=== PATIENT | male | born 1950 | race African-American/Black ===

== ENCOUNTER 2017-01-31 08:52 | Inpatient (IN) | payer OTHER, MEDICARE, BC ==
[2017-01-30 13:08] VITALS: BMI 35.3
[2017-01-31] VITALS (21 sets, daily range): BP systolic 128–171; BP diastolic 58–93; PULSE 69–89; RESP 10–20; Ht 195.6 cm; Wt 128.6 kg
[~2017-01-31] VITALS: Ht 195.6 cm; Wt 128.6 kg
[~2017-01-31 08:52] MED LIST: LISINOPRIL
[2017-01-31] MEDS ORDERED: LACTATED RINGER'S 1,000 ML IV* SCH (09:00)
[2017-01-31] MEDS ORDERED: CEFAZOLIN 2 GM/50 ML (PMX) 50 ML IVPB ONE (09:00)
[2017-01-31] MEDS ORDERED: IBUP100O10 PO (09:39)
[2017-01-31] MEDS ORDERED: TAMS0.4C2 PO (09:39)
[2017-01-31] MEDS ORDERED: ASPI81TA3 PO (09:39)
[2017-01-31] MEDS ORDERED: RANI300T PO (09:39)
[2017-01-31] MEDS ORDERED: LOSA1TAB19 PO (09:39)
[2017-01-31] MEDS ORDERED: SITA100T8 PO (09:39)
[2017-01-31] MEDS ORDERED: GLIM2TAB PO (09:39)
[2017-01-31] MEDS ORDERED: D5W-0.45 NACL + KCL 20 MEQ 1,000 ML IV SCH (10:32)
--- NOTE | 2017-01-31 10:35 | HPN ---
Date/Time of Note Date/Time of Note DATE: 01/31/17 TIME: 10:34 Interval H&P Admission Note Pt. seen H&P reviewed: No system changes NEWTON FRIEDMAN PA-C Jan 31, 2017 10:35
[2017-01-31] MEDS ORDERED: SURGIFOAM POWDER 1 GM KIT ONE (10:42)
[2017-01-31] MEDS ORDERED: POLYMYXIN/BACITRACIN 1L IRRIG ONE (10:43)
[2017-01-31] MEDS ORDERED: THROMBIN 5000 UNIT VIAL ONE (10:43)
[2017-01-31] MEDS ORDERED: BUPIVACAINE 0.25%/EPI (SDV) 30 ML INJ ONE (10:43)
[2017-01-31] MEDS ORDERED: BISACODYL 10 MG SUPP PR PRN (11:00)
[2017-01-31] MEDS ORDERED: AL HYDROX/MG HYDROX/SIMETH 30 ML CUP PO PRN (11:00)
[2017-01-31] MEDS ORDERED: CYCLOBENZAPRINE 10 MG TAB PO PRN (11:00)
[2017-01-31] MEDS ORDERED: CEPASTAT LOZENGE MT PRN (11:00)
[2017-01-31] MEDS ORDERED: HYDROmorphONE 0.2 MG/ML PCA IV SCH ×2 (11:00→15:00)
[2017-01-31] MEDS ORDERED: DIPHENHYDRAMINE 50 MG INJ IV PRN ×2 (11:00→12:00)
[2017-01-31] MEDS ORDERED: NALOXONE (0.4 MG/ML) INJ IV PRN (11:00)
[2017-01-31] MEDS ORDERED: ACETAMINOPHEN 325 MG TAB PO PRN (11:00)
[2017-01-31] MEDS ORDERED: ONDANSETRON 4 MG INJ IV PRN ×2 (11:00→12:00)
[2017-01-31] MEDS ORDERED: ONDANSETRON 4 MG INJ ONE (11:04)
[2017-01-31] MEDS ORDERED: HYDROmorphONE 2 MG/ML SYG ONE (11:04)
[2017-01-31] MEDS ORDERED: MIDAZOLAM 1 MG/ML 2 ML INJ ONE (11:04)
[2017-01-31] MEDS ORDERED: DEXAMETHASONE 4 MG/ML 1 ML INJ ONE (11:04)
[2017-01-31] MEDS ORDERED: ROCURONIUM 50 MG INJ ONE ×2 (11:04→11:26)
[2017-01-31] MEDS ORDERED: METOCLOPRAMIDE 10 MG INJ ONE (11:04)
[2017-01-31] MEDS ORDERED: PROPOFOL 20 ML ONE ×3 (11:04→13:51)
[2017-01-31] MEDS ORDERED: CEFAZOLIN 1 GM INJ ONE (11:09)
[2017-01-31] MEDS ORDERED: METOPROLOL 5 MG INJ ONE (11:30)
[2017-01-31] MEDS ORDERED: MEPERIDINE 25 MG INJ IV PRN (12:00)
[2017-01-31] MEDS ORDERED: LABETALOL HCL 20MG INJ IV PRN (12:00)
[2017-01-31] MEDS ORDERED: hydrALAzine 20 MG INJ IV PRN (12:00)
[2017-01-31] MEDS ORDERED: METOCLOPRAMIDE 10 MG INJ IV PRN (12:00)
[2017-01-31] MEDS ORDERED: HYDROmorphONE (0.2 MG/ML) 10ML SYG IV PRN ×3 (12:00)
[2017-01-31] MEDS ORDERED: CEFAZOLIN 1 GM/50 ML (PMX) 50 ML IVPB SCH (13:00)
[2017-01-31] MEDS ORDERED: SUCCINYLCHOLINE CHLORIDE 100 MG/5 ML SYG IV ONE (13:16)
[2017-01-31] MEDS ORDERED: LABETALOL HCL 20MG INJ ONE (14:08)
[2017-01-31] MEDS ORDERED: GLYCOPYRROLATE 1 MG INJ ONE (14:14)
[2017-01-31] MEDS ORDERED: NEOSTIGMINE 3 MG/3 ML SYRINGE ONE (14:14)
[2017-01-31] MEDS ORDERED: HYDROmorphONE 0.2 MG/ML PCA ONE (14:50)
--- NOTE | 2017-01-31 15:02 | OPR ---
DATE OF OPERATION: 01/31/2017 PREOPERATIVE DIAGNOSES: 1. C5-C6, C6-C7 cervical disk disease and stenosis with partial autofusion. 2. Radiculopathy. POSTOPERATIVE DIAGNOSES: 1. C5-C6, C6-C7 cervical disk disease and stenosis with partial autofusion. 2. Radiculopathy. OPERATIONS PERFORMED: 1. Anterior partial corpectomy at C5, C6, C7. 2. Anterior cervical fusion at C5-C6 and C6-C7. 3. Anterior hardware placement at C5, C6, C7. 4. Intraoperative neuromonitoring (2.5 hours). IMPLANTS: NeuroStructures Transom plate and Cavetto cages with Fibergraft. PRIMARY SURGEON: Carmelo Banks MD CAGE/VAULT SUPERVISOR: SURYA Whiteside NEED FOR SOFTWARE ENGINEER WEB APPLICATIONS: During this spinal surgical procedure, my litigation assistant was used to retract and protect the spinal nerves and dural sac. My litigation assistant also employed the suction catheters to evacuate blood from the surgical field to improve visualization of the neural structures. The litigation assistant was medically necessary to facilitate the completion of the surgery in a safe and expeditious manner. State of [place] regulations, as well as hospital bylaws, preclude the use of non-licensed health care personnel, such as operating room technicians, to perform these functions. FINDINGS: Neuromonitoring at the start of the case revealed left C6 amplitude down 50%, right C6 amplitude down 60%, bilateral C7 amplitude down 50%, bilateral C8 amplitude down 10%. At the end of the case, nerve signals returned to normal. The patient had partial autofusions at both C5-C6 and C6- C7 with stenosis and posterior osteophytes. ESTIMATED BLOOD LOSS: 60 mL DRAINS: One. SPECIMENS: Disk was sent to Pathology. COMPLICATIONS OF PROCEDURES: None. ANESTHESIOLOGIST: Dr. Epps TYPE OF ANESTHESIA: General. INDICATIONS FOR PROCEDURE: This is a 66-year-old gentleman cervical radiculopathy in the setting of stenosis. He has autofusion at C4-C5 with stenosis at C5-C6 and C6-C7. DESCRIPTION OF PROCEDURE IN DETAIL: The patient was identified in the preoperative holding area, given Ancef antibiotic, taken to the operating room, where he was successfully placed under general anesthesia. Neuromonitoring leads were placed, sequential compressive devices were applied. Neuromonitoring was utilized during the procedure for 2.5 hours to include SSEP , MEP, and EMG. This was performed by [employer]. Start time was 11:45 a.m., closure time was 2:15 p.m. Patient was placed on the operative table in supine position. Towel rolls were placed behind the neck and between the scapular blades and the arms were tucked at the side. The patient had essentially 0 neck extension. His neck was prepped and draped in usual sterile fashion. A left-sided approach to the neck was made. Skin was incised. I then incised the platysma in line with the skin incision. I then identified an interval between the sternocleidomastoid and strap muscles and identified the anterior spine. Bent spinal needle was placed in the C5-C6 level and lateral films obtained to confirm the correct levels. Once this was confirmed, I subperiosteally dissected the longus colli musculature to expose C5-C6 and C6- C7 levels. The patient had an autofusion at C4-C5. Attempts were made at performing a standard anterior cervical diskectomy at both levels; however, the patient had a partial autofusion and this could not be done. I therefore had to perform partial corpectomies of C5, C6 and C7 with removal of at least 50% of the vertebral bodies at each level. I was able to bur down to the posterior osteophytes which were causing stenosis and I was able to remove these with a Kerrison punch. I was therefore able to decompress the spinal canal at C5-C6, C6-C7 and the neural foramina bilaterally. Once this was done, I placed various trials and chose the appropriate graft height. I then took the PEEK cage, within which I placed allograft and I then impacted the intervertebral biomechanical device into the disk spaces at C5-C6 and C6-C7 to complete the anterior cervical fusion at both levels. I then placed the appropriate sized cervical plate and used 16 mm screws. I had excellent purchase. I took AP and lateral images and I was happy with placement of the hardware and alignment of the spine. All signals were normal. The wound was irrigated. Surgifoam was used for hemostatic purposes. Due to the patient's muscular neck , I elected to place a drain. Afterwards, I closed the platysma with a 2-0 Vicryl running stitch. I then closed subcutaneous tissue with a 3-0 Vicryl stitch. Dermabond and sterile dressings were then applied. The patient was then awakened from anesthesia and taken to recovery room in stable condition. Lap, sponge, and instrument counts were correct x2. There were no apparent complications during the procedure. The patient will be admitted to the [facility] for routine postoperative care to include pain control, neurovascular checks, antibiotics, and physical therapy. Dictated By: CARMELO MONTAGUE/AKOSUA Conf#: [id number] DID#: [id number] CC: NEWTON FRIEDMAN;*EndCC* MTDD
--- NOTE | 2017-01-31 15:15 | RADRPT ---
PROCEDURE: Intraoperative imaging of the cervical spine with fluoroscopy. CLINICAL INDICATION: Neck pain. Intraoperative. TECHNIQUE: Four images of the cervical spine were obtained in the operating room with an image int ensifier. No radiologist was in attendance. 17.3 seconds of fluoroscopy time was used. COMPARISON: No prior study is available for comparison. FINDINGS: Images demonstrate anterior fusion with plate and screws at C5 - C6 - C7. The endotracheal tube is noted. IMPRESSION: 1. Intraoperative imaging of the cervical spine. 2. Anterior fusion with plate and screws at C5 - C6 - C7. RPTAT: QQ .Artur Vital MD, MD Date Time Electronically viewed and signed by .Artur Vital MD, on 01/31/2017 15:14 .R/
[2017-01-31] MEDS: 1/2 NS + KCL 20 MEQ 1,000 ML IV SCH (18:28)
[2017-01-31] MEDS: DOCUSATE SODIUM 100 MG CAP PO SCH ×2 (20:02→20:16)
[2017-01-31] MEDS: RANITIDINE 150 MG TAB PO SCH (20:16)
[2017-01-31] MEDS: TAMSULOSIN (SR) 0.4 MG CAP PO SCH (20:16)
--- NOTE | 2017-01-31 20:42 | CONS ---
DATE OF ADMISSION: 01/31/2017 DATE OF CONSULTATION: REASON FOR CONSULTATION: To manage the patient's hypertension, benign prostatic hypertrophy, gastro esophageal reflux disease and obstructive sleep apnea. HISTORY OF PRESENT ILLNESS: This 66-year-old man is now postop a cervical spine surgery by Dr. Loi gates. The patient apparently was having neck pain with bilateral upper extremity numbness. The pa heidi failed medical therapy and decided to undergo surgery. He had a cervical spine surgery today which included a cervical spine fusion at the C5-C6 and C6-C7 levels. The patient had a cervical sp ine stenosis with radiculopathy diagnosed preoperatively. The patient is awake and responsive at th is time. He denies any chest pain or shortness of breath. PAST MEDICAL HISTORY: Remarkable for hypertension, benign prostatic hypertrophy, gastroesophageal r eflux disease, obstructive sleep apnea. SOCIAL HISTORY: The patient rarely drinks alcohol and never smoked. Denies illicit drug use. FAMILY HISTORY: His father at age 87 of congestive heart failure. ALLERGIES: HE HAS NO KNOWN DRUG ALLERGIES. CURRENT MEDICATIONS: Include the followin. Cialis p.r.n. 2. Flomax 0.4 mg at bedtime. 3. Glimepiride 2 mg at breakfast. 4. Januvia 100 mg a day. 5. Losartan HCT 50 mg/12.5 a day. 6. Metformin 2 tablets in the morning and 1 tablet in the evening. 7. Ranitidine 300 mg at bedtime. PAST SURGICAL HISTORY: Previous lumbar spine surgery including instrumented fusion, total knee repl acement done in 1999 and left total knee replacement done previously here at [facility] by Dr. Ray Hernandez. PHYSICAL EXAMINATION: GENERAL: At this time reveals an obese man in no apparent distress. VITAL SIGNS: Blood pressure 140/69, O2 saturation 96% on 2 liter nasal cannula, pulse of 83. HEENT: Head normocephalic. EYES: Extraocular muscles intact. NOSE AND MOUTH: Normal. NECK: There is a fresh wound with a drain over the left anterior neck. LUNGS: Clear to auscultation. HEART: Regular rhythm. No murmurs, gallops or rubs. ABDOMEN: Slightly obese. EXTREMITIES: No peripheral edema. IMPRESSION: This patient is now stable after undergoing a cervical spine surgery with fusion for sp inal stenosis. He is awake and alert. The patient has a history of hypertension, benign prostatic hypertrophy, gastroesophageal reflux disease and obstructive sleep apnea. I will manage these medic al problems. PLAN: 1. Resume some routine medications. 2. Check labs in the morning. 3. Postop cervical spine surgery protocol. 4. I will follow the patient along with you. Dictated By: ZABRINA UMANZOR MD, ND/AKOSUA Conf#: [id number] DID#: [id number]
[2017-02-01] MEDS: 1/2 NS + KCL 20 MEQ 1,000 ML IV SCH ×3 (00:32→17:32)
[2017-02-01] MEDS: CEFAZOLIN 1 GM/50 ML (PMX) 50 ML IVPB SCH ×3 (00:32→17:32)
[2017-02-01 05:11] VITALS: BP 142/75; PULSE 70; RESP 18
[2017-02-01 05:23] LABS: ADD SCAN DIFF NO
[2017-02-01 05:58] LABS: CREATININE 0.81 mg/dl (0.61-1.24)
[2017-02-01 05:59] LABS: CALCIUM 8.4 mg/dl (8.4-10.2); MAGNESIUM 2.1 mg/dl (1.7-2.5)
[2017-02-01 07:03] LABS: BASOPHILS % 0.2 % (0.0-2.0); EOSINOPHILS % 0.1 % (0.0-7.0); HEMATOCRIT 40.7 % (42.0-52.0); HEMOGLOBIN 12.9 g/dl (14.0-18.0); LYMPHOCYTES # 1.4 10^3/ul (0.8-2.9); MEAN CORPUSCULAR HEMOGLOBIN 26.2 pg (29.0-33.0); MEAN CORPUSCULAR HGB CONC 31.7 g/dl (32.0-37.0); MEAN CORPUSCULAR VOLUME 82.6 fl (82.0-101.0); MEAN PLATELET VOLUME 11.2 fl (7.4-10.4); MONOCYTE # 0.9 10^3/ul (0.3-0.9); MONOCYTES % 8.4 % (0.0-11.0); NEUTROPHIL # 8.1 10^3/ul (1.6-7.5); NEUTROPHILS % 77.7 % (39.0-77.0); PLATELET COUNT 164 10^3/UL (140-415); RED BLOOD COUNT 4.93 10^6/ul (4.70-6.10); RED CELL DISTRIBUTION WIDTH 15.7 % (11.5-14.5); WHITE BLOOD COUNT 10.4 10^3/ul (4.8-10.8)
[2017-02-01 07:49] VITALS: BP 136/61; RESP 16
--- NOTE | 2017-02-01 08:33 | CONS ---
Date/Time of Note Date/Time of Note DATE: 02/01/17 TIME: 08:31 Assessment/Plan Assessment/Plan Chief Complaint/Hosp Course #1 he is one day postop A cervical spine surgery. He has no complaints other than some neck pain. #2 is diabetes mellitus and hypertension are under control. #3 continue current medication and start physical therapy. Problems: Consultation Date/Type/Reason Admit Date/Time Jan 31, 2017 at 08:52 Initial Consult Date 24 HR Interval Summary Free Text/Dictation He now one day postop a cervical spine surgery. He is awake and alert. Constitutional: no complaints Exam/Review of Systems Vital Signs Vitals Vital Signs Date Time Temp Pulse Resp B/P Pulse Ox O2 Delivery O2 Flow Rate FiO2 02/01/17 07:49 97.9 80 16 136/61 98 02/01/17 05:11 Nasal Cannula 2.0 Intake and Output 01/31/17 01/31/17 02/01/17 15:00 23:00 07:00 Intake Total 100 ml 1700 ml Output Total 20 ml 5 ml 1120 ml Balance -20 ml 95 ml 580 ml Exam Constitutional: alert, oriented, well developed Respiratory: clear to auscultation, normal air movement Cardiovascular: regular rate and rhythm Gastrointestinal: soft Musculoskeletal: nl extremities to inspection Results Result Diagram: 02/01/17 0422 02/01/17 0422 Results 24 hrs Laboratory Tests Test 01/31/17 09:30 01/31/17 15:23 02/01/17 04:22 02/01/17 08:26 Bedside Glucose 128 166 122 Anion Gap 16 Basophils # 0.0 Basophils % 0.2 Blood Urea Nitrogen 15 Calcium Level 8.4 Carbon Dioxide Level 25 Chloride Level 102 Creatinine 0.81 Eosinophils # 0.0 Eosinophils % 0.1 Glucose Level 113 Hematocrit 40.7 L Hemoglobin 12.9 L Lymphocytes # 1.4 Lymphocytes % 13.0 L Magnesium Level 2.1 Mean Corpuscular Hemoglobin 26.2 L Mean Corpuscular Hemoglobin Concent 31.7 L Mean Corpuscular Volume 82.6 Mean Platelet Volume 11.2 H Monocytes # 0.9 Monocytes % 8.4 Neutrophils # 8.1 H Neutrophils % 77.7 H Nucleated Red Blood Cells # 0.0 Nucleated Red Blood Cells % 0.0 Platelet Count 164 Potassium Level 4.0 Red Blood Count 4.93 Red Cell Distribution Width 15.7 H Sodium Level 139 White Blood Count 10.4 Medications Medications Current Medications Acetaminophen/ Hydrocodone Bitart ([place] (10325)) 1 tab Q4H PRN PO PAIN LEVEL 1-5; Start 02/01/17 at 09:30 Acetaminophen/ Hydrocodone Bitart ([place] (10/325)) 2 tab Q4H PRN PO PAIN LEVEL 6-10; Start 02/01/17 at 09:30 Hydromorphone HCl (Dilaudid) 0.2 mg Q1H PRN IV BREAKTHROUGH PAIN; Start at 10:00 Ondansetron HCl (Zofran Inj) 4 mg Q6H PRN IV NAUSEA AND/OR VOMITING Last administered on 02/01/17 04:43; Admin Dose 4 MG; Start 01/31/17 at 11:00 Bisacodyl (Dulcolax Supp) 10 mg DAILY PRN [place] CONSTIPATION; Start 01/31/17 at 11 :00 Docusate Sodium (Colace) 100 mg BID PO Last administered on 01/31/17 20:16; Admin Dose 100 MG; Start 01/31/17 at 21:00 Al Hydrox/Mg Hydrox/Simethicone (Mag-Al Plus) 15 ml Q6H PRN PO CONSTIPATION/ DYSPEPSIA; Start 01/31/17 at 11:00 Acetaminophen (Tylenol Tab) 650 mg Q4H PRN PO GRAHAM OR TEMP GREATER THAN 101.3F; Start 01/31/17 at 11:00 Cyclobenzaprine HCl (Flexeril) 10 mg Q8H PRN PO MUSCLE SPASMS; Start 01/31/17 at 11:00 Phenol (Cepastat Lozenge) 1 lozenge PRN PRN MT SORE THROAT; Start 01/31/17 at 11:00 Diphenhydramine HCl (Benadryl) 25 mg Q6H PRN IV ITCHING Last administered on 04:46; Admin Dose 25 MG; Start 01/31/17 at 11:00 Naloxone HCl (Narcan) 0.2 mg Q2M PRN IV RR 8 BREATHS/MIN OR LESS; Start at 11:00 Miscellaneous Information 1. Hold ELEVATOR MECHANIC at 1,000... ELEVATOR MECHANIC IV ; Start 01/31/17 at 11: 00 Potassium Chloride/Sodium Chloride (1/2 NS + KCl 20 Meq) 1,000 ml @ 100 mls/hr Q10H IV Last administered on 02/01/17 00:32; Admin Dose 100 MLS/HR; Start at 14:40 Hydromorphone HCl (Dilaudid ELEVATOR MECHANIC) ELEVATOR MECHANIC to be started in PACU Q4PCA IV Last administered on 01/31/17 15:03; Admin Dose 6 MG; Start 01/31/17 at 15:00; Stop 02/01/17 at 10:00 Ranitidine HCl (Zantac) 300 mg HS PO Last administered on 01/31/17 20:16; Admin Dose 300 MG; Start 01/31/17 at 21:00 Tamsulosin HCl 0.4 mg 0.4 mg HS PO Last administered on 01/31/17 20:16; Admin Dose 0.4 MG; Start 01/31/17 at 21:00 Cefazolin Sodium (Ancef 1 Gm/50 ml (Pmx)) 50 ml @ 100 mls/hr Q8H IVPB Last administered on 02/01/17 00:32; Admin Dose 100 MLS/HR; Start 02/01/17 at 01:30 ; Stop 02/01/17 at 17:59 Clonidine (Catapres) 0.1 mg Q6H PRN PO SBP>160; Start 02/01/17 at 05:30 Diagnostic Test (Pha) (Accucheck) 1 ea 02 XX ; Start 02/02/17 at 02:00; Status ZABRINA SHEFFIELD MD Feb 01, 2017 08:33
[2017-02-01] MEDS ORDERED: GLUCOSE GEL 15 GRAM TUBE PO PRN ×2 (09:00)
[2017-02-01] MEDS ORDERED: DEXTROSE 50% 50 ML SYRINGE IV PRN ×2 (09:00)
[2017-02-01] MEDS ORDERED: GLUCOSE GEL 15 GRAM TUBE BUCCAL PRN (09:00)
[2017-02-01] MEDS ORDERED: GLUCAGON 1 MG INJ IM PRN (09:00)
[2017-02-01] MEDS ORDERED: HYDROCODONE/APAP (10/325) TAB PO PRN (09:30)
[2017-02-01] MEDS: LOSARTAN 50 MG TAB PO SCH (09:38)
[2017-02-01] MEDS: HYDROCODONE/APAP (10/325) TAB PO PRN ×2 (09:39→20:29)
[2017-02-01] MEDS: INSULIN ASPART [NOVOLOG] 3 ML PEN SC SCH ×3 (11:40→20:30)
--- NOTE | 2017-02-01 12:50 | PN ---
Date/Time of Note Date/Time of Note DATE: 02/01/17 TIME: 12:48 Assessment/Plan Lines/Catheters IV Catheter Type (from Nrsg): Peripheral IV Assessment/Plan Assessment/Plan s/p ACDF C5-7 - doing well continue pain control, PT today anticipate D/C tomorrow AM Subjective 24 Hr Interval Summary patient c/o sore throat, dysphagia arm pain improved continues to note numbness Exam/Review of Systems Vital Signs Vitals Vital Signs Date Time Temp Pulse Resp B/P Pulse Ox O2 Delivery O2 Flow Rate FiO2 02/01/17 10:00 18 02/01/17 07:49 97.9 80 136/61 98 02/01/17 05:11 Nasal Cannula 2.0 Intake and Output 01/31/17 01/31/17 02/01/17 15:00 23:00 07:00 Intake Total 100 ml 1700 ml Output Total 20 ml 5 ml 1120 ml Balance -20 ml 95 ml 580 ml Exam Free Text/Dictation NVID drain output 45cc - drain D/C'ed incision C/D/I new dressing applied Results Result Diagram: 02/01/17 0422 02/01/17 0422 NEWTON FRIEDMAN PA-C Feb 01, 2017 12:49
[2017-02-01 19:50] VITALS: BP 138/83; RESP 18
[2017-02-01] MEDS: TAMSULOSIN (SR) 0.4 MG CAP PO SCH (20:29)
[2017-02-01] MEDS: RANITIDINE 150 MG TAB PO SCH (20:29)
[2017-02-01] MEDS: DOCUSATE SODIUM 100 MG CAP PO SCH (20:29)
[2017-02-01] MEDS: ZOLPIDEM 5 MG TAB PO PRN (22:19)
[2017-02-02] MEDS: ACCU-CHEK XX SCH (02:00)
[2017-02-02] MEDS: 1/2 NS + KCL 20 MEQ 1,000 ML IV SCH ×2 (05:07→16:40)
[2017-02-02] MEDS: INSULIN ASPART [NOVOLOG] 3 ML PEN SC SCH ×4 (07:50→21:00)
--- NOTE | 2017-02-02 08:21 | PN ---
Date/Time of Note Date/Time of Note DATE: 02/02/17 TIME: 08:18 Assessment/Plan Lines/Catheters IV Catheter Type (from Nrsg): Saline Lock Assessment/Plan Assessment/Plan s/p ACDF - doing well stable for D/C from ortho perspective D/C IV, D/C home if cleared by PMD f/u arranged post op rx given may resume outpt meds may shower - do not soak or scrub incision site do not need to cover incision Subjective 24 Hr Interval Summary patient c/o left trapezial spasm arm pain improving sore throat improving Exam/Review of Systems Vital Signs Vitals Vital Signs Date Time Temp Pulse Resp B/P Pulse Ox O2 Delivery O2 Flow Rate FiO2 02/01/17 19:50 99.3 74 18 138/83 92 02/01/17 05:11 Nasal Cannula 2.0 Intake and Output 02/01/17 02/01/17 02/02/17 15:00 23:00 07:00 Intake Total 1900 ml 1580 ml Output Total 840 ml 1840 ml Balance 1060 ml -260 ml Exam Free Text/Dictation dressing removed incision C/D/I NVID Temp 97.8, BP 155/74, HR 77, RR 18, SaO2 92 Results Result Diagram: 02/01/17 0422 02/01/17 0422 NEWTON FRIEDMAN PA-C Feb 02, 2017 08:21
[2017-02-02 08:42] VITALS: BP 155/74; RESP 18
[2017-02-02] MEDS: DOCUSATE SODIUM 100 MG CAP PO SCH ×2 (09:04→20:55)
[2017-02-02] MEDS: LOSARTAN 50 MG TAB PO SCH (09:05)
--- NOTE | 2017-02-02 09:36 | CONS ---
Date/Time of Note Date/Time of Note DATE: 02/02/17 TIME: 09:32 Assessment/Plan Assessment/Plan Chief Complaint/Hosp Course #1 he is two days postop a cervical spine surgery. He has pain and swelling in L suprascapular area . I will order an ultrasound of that area . #2 diabetes mellitus and hypertension are under control. #3 continue current medication and start physical therapy. Problems: Consultation Date/Type/Reason Admit Date/Time Jan 31, 2017 at 08:52 Type of Consultation: medicine 24 HR Interval Summary Free Text/Dictation Patient complains of L suprascapular swelling and pain . Exam/Review of Systems Vital Signs Vitals Vital Signs Date Time Temp Pulse Resp B/P Pulse Ox O2 Delivery O2 Flow Rate FiO2 02/02/17 08:42 97.8 77 18 155/74 92 02/01/17 05:11 Nasal Cannula 2.0 Intake and Output 02/01/17 02/01/17 02/02/17 15:00 23:00 07:00 Intake Total 1950 ml 1580 ml Output Total 840 ml 1840 ml Balance 1110 ml -260 ml Exam Constitutional: alert, oriented, well developed Psych: nl mood/affect, no complaints Respiratory: clear to auscultation Cardiovascular: regular rate and rhythm Musculoskeletal: nl extremities to inspection Results Result Diagram: 02/01/17 0422 02/01/17 0422 Results 24 hrs Laboratory Tests Test 02/01/17 12:11 02/01/17 17:31 02/01/17 20:13 02/02/17 08:10 Bedside Glucose 111 133 111 116 Medications Medications Current Medications Acetaminophen/ Hydrocodone Bitart ([place] (10/325)) 1 tab Q4H PRN PO PAIN LEVEL 1-5 Last administered on 02/01/17 20:29; Admin Dose 1 TAB; Start 02/01/17 at 09 :30 Acetaminophen/ Hydrocodone Bitart ([place] (10/325)) 2 tab Q4H PRN PO PAIN LEVEL 6-10; Start 02/01/17 at 09:30 Hydromorphone HCl (Dilaudid) 0.2 mg Q1H PRN IV BREAKTHROUGH PAIN; Start at 10:00 Ondansetron HCl (Zofran Inj) 4 mg Q6H PRN IV NAUSEA AND/OR VOMITING Last administered on 02/01/17 04:43; Admin Dose 4 MG; Start 01/31/17 at 11:00 Bisacodyl (Dulcolax Supp) 10 mg DAILY PRN [place] CONSTIPATION; Start 01/31/17 at 11 :00 Docusate Sodium (Colace) 100 mg BID PO Last administered on 02/02/17 09:04; Admin Dose 100 MG; Start 01/31/17 at 21:00 Al Hydrox/Mg Hydrox/Simethicone (Mag-Al Plus) 15 ml Q6H PRN PO CONSTIPATION/ DYSPEPSIA; Start 01/31/17 at 11:00 Acetaminophen (Tylenol Tab) 650 mg Q4H PRN PO GRAHAM OR TEMP GREATER THAN 101.3F Last administered on 02/01/17 13:55; Admin Dose 650 MG; Start 01/31/17 at 11:00 Cyclobenzaprine HCl (Flexeril) 10 mg Q8H PRN PO MUSCLE SPASMS Last administered on 02/02/17 05:13; Admin Dose 10 MG; Start 01/31/17 at 11:00 Phenol (Cepastat Lozenge) 1 lozenge PRN PRN MT SORE THROAT; Start 01/31/17 at 11:00 Diphenhydramine HCl (Benadryl) 25 mg Q6H PRN IV ITCHING Last administered on 04:46; Admin Dose 25 MG; Start 01/31/17 at 11:00 Naloxone HCl 0.2 mg 0.2 mg Q2M PRN IV RR 8 BREATHS/MIN OR LESS; Start 01/31/17 at 11:00 Potassium Chloride/Sodium Chloride (1/2 NS + KCl 20 Meq) 1,000 ml @ 100 mls/hr Q10H IV Last administered on 02/02/17 05:07; Admin Dose 100 MLS/HR; Start at 14:40 Ranitidine HCl (Zantac) 300 mg HS PO Last administered on 02/01/17 20:29; Admin Dose 300 MG; Start 01/31/17 at 21:00 Tamsulosin HCl (Flomax) 0.4 mg HS PO Last administered on 02/01/17 20:29; Admin Dose 0.4 MG; Start 01/31/17 at 21:00 Clonidine (Catapres) 0.1 mg Q6H PRN PO SBP>160; Start 02/01/17 at 05:30 Diagnostic Test (Pha) (Accucheck) 1 ea 02 XX ; Start 02/02/17 at 02:00 Losartan Potassium (Cozaar) 50 mg DAILY PO Last administered on 02/02/17t 09:05 ; Admin Dose 50 MG; Start 02/01/17 at 09:00 Miscellaneous Information 1 ea NOTE XX ; Start 02/01/17 at 09:00 Glucose (Glutose) 15 gm Q15M PRN PO DECREASED GLUCOSE; Start 02/01/17 at 09:00 Glucose (Glutose) 22.5 gm Q15M PRN PO DECREASED GLUCOSE; Start 02/01/17 at 09: 00 Dextrose (D50w Syringe) 25 ml Q15M PRN IV DECREASED GLUCOSE; Start 02/01/17 at 09:00 Dextrose (D50w Syringe) 50 ml Q15M PRN IV DECREASED GLUCOSE; Start 02/01/17 at 09:00 Glucagon (Glucagen) 1 mg Q15M PRN IM DECREASED GLUCOSE; Start 02/01/17 at 09:00 Glucose (Glutose) 15 gm Q15M PRN BUCCAL DECREASED GLUCOSE; Start 02/01/17 at 09 :00 ZABRINA UMANZOR MD Feb 02, 2017 09:35
[2017-02-02] MEDS: HYDROmorphONE 1 MG/ML SYG IV PRN ×2 (09:55→18:14)
--- NOTE | 2017-02-02 12:20 | RADRPT ---
PROCEDURE: Nonvascular ultrasound. CLINICAL INDICATION: Left suprascapular soft tissue swelling in the region of the trapezius muscle . TECHNIQUE: Real time wong-scale ultrasound imaging of the area of palpable abnormality. The right trapezius muscles evaluated for comparison. COMPARISON: None. FINDINGS: Asymmetric enlargement of the right suprascapular region overlying the right trapezius muscle (this may represent levator scapulae or supraspinatus muscle depending on the exact location) suspicious f or intramuscular lipoma measuring 7 x 3 x 5 cm in size. The right suprascapular region was obtained for comparison. IMPRESSION: Findings suggestive of intramuscular mass or swelling in the region of palpable abnormality. Althoug h this may represent an intramuscular lipoma, infiltrate mass cannot be excluded. Contrast enhanced MRI or CT is recommended for further evaluation. RPTAT:AAJJ Physician Deandra Date Time Electronically viewed and signed by Physician Deandra on 02/02/2017 12:20 ROYAL/
[2017-02-02] MEDS: CLOTRIMAZOLE 10 MG TROCHE MT SCH ×2 (18:14→20:55)
[2017-02-02 20:12] VITALS: BP 157/90; RESP 20
[2017-02-02] MEDS: TAMSULOSIN (SR) 0.4 MG CAP PO SCH (20:55)
[2017-02-02] MEDS: RANITIDINE 150 MG TAB PO SCH (20:55)
[2017-02-02] MEDS: ZOLPIDEM 5 MG TAB PO PRN (21:33)
[2017-02-03] MEDS: 1/2 NS + KCL 20 MEQ 1,000 ML IV SCH ×4 (00:45→22:29)
[2017-02-03] MEDS: ACCU-CHEK XX SCH (02:00)
[2017-02-03 07:44] VITALS: BP 152/94; RESP 20
[2017-02-03] MEDS: INSULIN ASPART [NOVOLOG] 3 ML PEN SC SCH ×4 (07:50→21:00)
[2017-02-03] MEDS: DOCUSATE SODIUM 100 MG CAP PO SCH ×2 (08:57→21:00)
[2017-02-03] MEDS: CLOTRIMAZOLE 10 MG TROCHE MT SCH ×2 (08:57→12:00)
[2017-02-03] MEDS: LOSARTAN 50 MG TAB PO SCH (08:57)
--- NOTE | 2017-02-03 10:21 | CONS ---
Date/Time of Note Date/Time of Note DATE: 02/03/17 TIME: 10:14 Assessment/Plan Assessment/Plan Chief Complaint/Hosp Course #1 he is three days postop a cervical spine surgery. He has pain and swelling in L suprascapular area . An ultrasound was done and it looks like a lipoma . #2 diabetes mellitus and hypertension are under control. #3 continue current medication and start physical therapy. #4 he is having dysphagia and even has difficulty with his own oral secretions . He has been seen by speech therapy and a video swallowing study is ordered . Problems: Consultation Date/Type/Reason Admit Date/Time Jan 31, 2017 at 08:52 Type of Consultation: medicine 24 HR Interval Summary Free Text/Dictation He is having trouble swallowing . Exam/Review of Systems Vital Signs Vitals Vital Signs Date Time Temp Pulse Resp B/P Pulse Ox O2 Delivery O2 Flow Rate FiO2 02/03/17 07:44 98.7 76 20 152/94 96 02/02/17 20:00 Nasal Cannula 2.0 Intake and Output 02/02/17 02/02/17 02/03/17 15:00 23:00 07:00 Intake Total 120 ml 760 ml 1100 ml Output Total 1200 ml 600 ml Balance 120 ml -440 ml 500 ml Exam Constitutional: alert, oriented, well developed Respiratory: clear to auscultation, normal air movement Cardiovascular: regular rate and rhythm Gastrointestinal: soft Musculoskeletal: nl extremities to inspection Results Result Diagram: 02/01/17 0422 02/01/17 0422 Results 24 hrs Laboratory Tests Test 02/02/17 11:48 02/02/17 17:18 02/02/17 20:52 02/03/17 08:01 Bedside Glucose 98 112 105 111 Medications Medications Current Medications Acetaminophen/ Hydrocodone Bitart ([place] (10/325)) 1 tab Q4H PRN PO PAIN LEVEL 1-5 Last administered on 02/01/17 20:29; Admin Dose 1 TAB; Start 02/01/17 at 09 :30 Acetaminophen/ Hydrocodone Bitart ([place] (10/325)) 2 tab Q4H PRN PO PAIN LEVEL 6-10; Start 02/01/17 at 09:30 Hydromorphone HCl (Dilaudid) 0.2 mg Q1H PRN IV BREAKTHROUGH PAIN Last administered on 02/02/17 18:14; Admin Dose 0.2 MG; Start 02/01/17 at 10:00 Ondansetron HCl (Zofran Inj) 4 mg Q6H PRN IV NAUSEA AND/OR VOMITING Last administered on 02/01/17 04:43; Admin Dose 4 MG; Start 01/31/17 at 11:00 Bisacodyl (Dulcolax Supp) 10 mg DAILY PRN [place] CONSTIPATION; Start 01/31/17 at 11 :00 Docusate Sodium (Colace) 100 mg BID PO Last administered on 02/03/17 08:57; Admin Dose 100 MG; Start 01/31/17 at 21:00 Al Hydrox/Mg Hydrox/Simethicone (Mag-Al Plus) 15 ml Q6H PRN PO CONSTIPATION/ DYSPEPSIA; Start 01/31/17 at 11:00 Acetaminophen (Tylenol Tab) 650 mg Q4H PRN PO GRAHAM OR TEMP GREATER THAN 101.3F Last administered on 02/01/17 13:55; Admin Dose 650 MG; Start 01/31/17 at 11:00 Cyclobenzaprine HCl (Flexeril) 10 mg Q8H PRN PO MUSCLE SPASMS Last administered on 02/02/17 05:13; Admin Dose 10 MG; Start 01/31/17 at 11:00 Phenol (Cepastat Lozenge) 1 lozenge PRN PRN MT SORE THROAT; Start 01/31/17 at 11:00 Diphenhydramine HCl (Benadryl) 25 mg Q6H PRN IV ITCHING Last administered on 04:46; Admin Dose 25 MG; Start 01/31/17 at 11:00 Naloxone HCl 0.2 mg 0.2 mg Q2M PRN IV RR 8 BREATHS/MIN OR LESS; Start 01/31/17 at 11:00 Potassium Chloride/Sodium Chloride (1/2 NS + KCl 20 Meq) 1,000 ml @ 100 mls/hr Q10H IV Last administered on 02/03/17 00:45; Admin Dose 100 MLS/HR; Start at 14:40 Ranitidine HCl (Zantac) 300 mg HS PO Last administered on 02/02/17 20:55; Admin Dose 300 MG; Start 01/31/17 at 21:00 Tamsulosin HCl (Flomax) 0.4 mg HS PO Last administered on 02/02/17 20:55; Admin Dose 0.4 MG; Start 01/31/17 at 21:00 Clonidine (Catapres) 0.1 mg Q6H PRN PO SBP>160; Start 02/01/17 at 05:30 Diagnostic Test (Pha) (Accucheck) 1 ea 02 XX ; Start 02/02/17 at 02:00 Losartan Potassium (Cozaar) 50 mg DAILY PO Last administered on 02/03/17 08:57 ; Admin Dose 50 MG; Start 02/01/17 at 09:00 Miscellaneous Information 1 ea NOTE XX ; Start 02/01/17 at 09:00 Glucose (Glutose) 15 gm Q15M PRN PO DECREASED GLUCOSE; Start 02/01/17 at 09:00 Glucose (Glutose) 22.5 gm Q15M PRN PO DECREASED GLUCOSE; Start 02/01/17 at 09: 00 Dextrose (D50w Syringe) 25 ml Q15M PRN IV DECREASED GLUCOSE; Start 02/01/17 at 09:00 Dextrose (D50w Syringe) 50 ml Q15M PRN IV DECREASED GLUCOSE; Start 02/01/17 at 09:00 Glucagon (Glucagen) 1 mg Q15M PRN IM DECREASED GLUCOSE; Start 02/01/17 at 09:00 Glucose (Glutose) 15 gm Q15M PRN BUCCAL DECREASED GLUCOSE; Start 02/01/17 at 09 :00 ZABRINA UMANZOR MD Feb 03, 2017 10:20
[2017-02-03] MEDS ORDERED: BARIUM SULFATE 135 ML (E-Z HD) PO ONE (11:49)
[2017-02-03] MEDS ORDERED: ZOLPIDEM 5 MG TAB PO PRN (13:30)
[2017-02-03 14:32] VITALS: BP 154/90; PULSE 83; RESP 18
[2017-02-03 15:29] LABS: POTASSIUM 3.9 mmol/L (3.5-5.1)
[2017-02-03] MEDS ORDERED: hydrALAzine 20 MG INJ IV PRN (15:30)
[2017-02-03 15:31] LABS: CREATININE 0.69 mg/dl (0.61-1.24)
[2017-02-03 15:32] LABS: CALCIUM 8.9 mg/dl (8.4-10.2)
--- NOTE | 2017-02-03 16:26 | RADRPT ---
PROCEDURE: Video-fluoroscopy swallowing study. CLINICAL INDICATION: Dysphagia. TECHNIQUE: Fluoroscopic guided video swallowing study was done in conjunction with the speech ther apist. The study was confined to the oral, pharyngeal, and cervical phases of the swallowing mechani sm. 1.7 minutes of fluoroscopy time was used. COMPARISON: No prior study is available for comparison. FINDINGS: There is marked prevertebral soft tissue swelling. There has been fusion with anterior plate and sc rews at C5 - C6 - C7. The the patient had difficulty swallowing and there is penetration to the voc al cords. There is no adore aspiration. However, a large residual is noted. IMPRESSION: 1. Marked prevertebral soft tissue swelling. 2. Prior cervical spine surgery. 3. Penetration to the vocal cords with no adore aspiration. 4. Please refer to the speech therapist's recommendations for future feedings. RPTAT: QQ .Artur Vital MD, MD Date Time Electronically viewed and signed by .Artur Vital MD, MD on 02/03/2017 16:25 .R/
[2017-02-03] MEDS: FLUCONAZOLE 100 MG/NS (PMX) 50 ML IVPB SCH (17:15)
[2017-02-03 19:00] VITALS: BP 164/87; RESP 19
--- NOTE | 2017-02-03 20:50 | RADRPT ---
PROCEDURE: XR Chest. CLINICAL INDICATION: Congestion. TECHNIQUE: Single frontal view of the chest was obtained COMPARISON: No. FINDINGS: The cardiomediastinal silhouette, pulmonary vasculature and gisselle are unremarkable. The lungs are cl ear. There are degenerative osteophytes in the thoracic spine. The soft tissues are normal. IMPRESSION: 1. There is no evidence of active cardiopulmonary disease. RPTAT:AAJJ Physician Ovidio Date Time Electronically viewed and signed by Сергей Greer Physician on 02/03/2017 20:50 ISAI/
[2017-02-03] MEDS: RANITIDINE 150 MG TAB PO SCH (22:07)
[2017-02-03] MEDS: TAMSULOSIN (SR) 0.4 MG CAP PO SCH (22:07)
[2017-02-03 22:30] VITALS: BP 144/78; PULSE 76; RESP 17
[2017-02-04] MEDS: ACCU-CHEK XX SCH (02:00)
--- NOTE | 2017-02-04 05:02 | CONS ---
Date/Time of Note Date/Time of Note DATE: 02/04/17 TIME: 04:59 Assessment/Plan Assessment/Plan Additional Assessment/Plan #1 POD #4 cervical spine surgery. He has pain and swelling in L suprascapular area . An ultrasound was done and it looks like a lipoma . #2 diabetes mellitus and hypertension are under control. #3 continue current medication and start physical therapy. #4 Oropharangeal dyphagia: ENT consulted, pending evaluation FULL CODE Coverage Dr. Tobin Consultation Date/Type/Reason Admit Date/Time Jan 31, 2017 at 08:52 Initial Consult Date Type of Consultation: medicine 24 HR Interval Summary Free Text/Dictation discussed issues with nursing ENT follow up pending failed swallow eval Constitutional: improved, no complaints Exam/Review of Systems Vital Signs Vitals Vital Signs Date Time Temp Pulse Resp B/P Pulse Ox O2 Delivery O2 Flow Rate FiO2 02/03/17 22:30 98.8 76 17 144/78 98 Room Air 02/02/17 20:00 2.0 Intake and Output 02/03/17 02/03/17 02/04/17 15:00 23:00 07:00 Intake Total 660 ml 400 ml 400 ml Output Total 1200 ml Balance 660 ml -800 ml 400 ml Exam Constitutional: alert, oriented Neck: non-tender, supple Results Result Diagram: 02/01/17 0422 02/03/17 1500 Results 24 hrs Laboratory Tests Test 02/03/17 08:01 02/03/17 15:00 02/03/17 17:01 02/03/17 22:06 Bedside Glucose 111 99 100 Anion Gap 16 Blood Urea Nitrogen 11 Calcium Level 8.9 Carbon Dioxide Level 27 Chloride Level 99 Creatinine 0.69 Glucose Level 99 Potassium Level 3.9 Sodium Level 138 Medications Medications Current Medications Acetaminophen/ Hydrocodone Bitart ([place] (10/325)) 1 tab Q4H PRN PO PAIN LEVEL 1-5 Last administered on 02/01/17 20:29; Admin Dose 1 TAB; Start 02/01/17 at 09 :30 Acetaminophen/ Hydrocodone Bitart ([place] (10/325)) 2 tab Q4H PRN PO PAIN LEVEL 6-10; Start 02/01/17 at 09:30 Hydromorphone HCl (Dilaudid) 0.2 mg Q1H PRN IV BREAKTHROUGH PAIN Last administered on 02/02/17 18:14; Admin Dose 0.2 MG; Start 02/01/17 at 10:00 Ondansetron HCl (Zofran Inj) 4 mg Q6H PRN IV NAUSEA AND/OR VOMITING Last administered on 02/01/17 04:43; Admin Dose 4 MG; Start 01/31/17 at 11:00 Bisacodyl (Dulcolax Supp) 10 mg DAILY PRN [place] CONSTIPATION; Start 01/31/17 at 11 :00 Docusate Sodium (Colace) 100 mg BID PO Last administered on 02/03/17 08:57; Admin Dose 100 MG; Start 01/31/17 at 21:00 Al Hydrox/Mg Hydrox/Simethicone (Mag-Al Plus) 15 ml Q6H PRN PO CONSTIPATION/ DYSPEPSIA; Start 01/31/17 at 11:00 Acetaminophen (Tylenol Tab) 650 mg Q4H PRN PO GRAHAM OR TEMP GREATER THAN 101.3F Last administered on 02/01/17 13:55; Admin Dose 650 MG; Start 01/31/17 at 11:00 Cyclobenzaprine HCl (Flexeril) 10 mg Q8H PRN PO MUSCLE SPASMS Last administered on 02/02/17 05:13; Admin Dose 10 MG; Start 01/31/17 at 11:00 Phenol (Cepastat Lozenge) 1 lozenge PRN PRN MT SORE THROAT; Start 01/31/17 at 11:00 Diphenhydramine HCl (Benadryl) 25 mg Q6H PRN IV ITCHING Last administered on 04:46; Admin Dose 25 MG; Start 01/31/17 at 11:00 Naloxone HCl 0.2 mg 0.2 mg Q2M PRN IV RR 8 BREATHS/MIN OR LESS; Start 01/31/17 at 11:00 Potassium Chloride/Sodium Chloride (1/2 NS + KCl 20 Meq) 1,000 ml @ 50 mls/hr Q20H IV Last administered on 02/03/17 22:29; Admin Dose 50 MLS/HR; Start 01/31 at 14:40 Ranitidine HCl (Zantac) 300 mg HS PO Last administered on 02/03/17 22:07; Admin Dose 300 MG; Start 01/31/17 at 21:00 Tamsulosin HCl (Flomax) 0.4 mg HS PO Last administered on 02/03/17 22:07; Admin Dose 0.4 MG; Start 01/31/17 at 21:00 Clonidine (Catapres) 0.1 mg Q6H PRN PO SBP>160; Start 02/01/17 at 05:30 Diagnostic Test (Pha) (Accucheck) 1 ea 02 XX ; Start 02/02/17 at 02:00 Losartan Potassium (Cozaar) 50 mg DAILY PO Last administered on 02/03/17 08:57 ; Admin Dose 50 MG; Start 02/01/17 at 09:00 Miscellaneous Information 1 ea NOTE XX ; Start 02/01/17 at 09:00 Glucose (Glutose) 15 gm Q15M PRN PO DECREASED GLUCOSE; Start 02/01/17 at 09:00 Glucose (Glutose) 22.5 gm Q15M PRN PO DECREASED GLUCOSE; Start 02/01/17 at 09: 00 Dextrose (D50w Syringe) 25 ml Q15M PRN IV DECREASED GLUCOSE; Start 02/01/17 at 09:00 Dextrose (D50w Syringe) 50 ml Q15M PRN IV DECREASED GLUCOSE; Start 02/01/17 at 09:00 Glucagon (Glucagen) 1 mg Q15M PRN IM DECREASED GLUCOSE; Start 02/01/17 at 09:00 Glucose 15 gm 15 gm Q15M PRN BUCCAL DECREASED GLUCOSE; Start 02/01/17 at 09:00 Fluconazole/ Sodium Chloride (Diflucan 100 Mg/ NS (Pmx)) 50 ml @ 50 mls/hr Q24H IVPB Last administered on 02/03/17 17:15; Admin Dose 50 MLS/HR; Start at 17:00; Stop 02/09/17 at 17:59 Hydralazine HCl (Apresoline) 10 mg Q6H PRN IV ELEVATED SYSTOLIC BP; Start 02/03 at 15:30 ALDA GALEANA MD Feb 04, 2017 05:02
[2017-02-04 07:50] VITALS: BP 156/91; RESP 20
[2017-02-04] MEDS: INSULIN ASPART [NOVOLOG] 3 ML PEN SC SCH ×2 (07:50→11:40)
[2017-02-04] MEDS: DOCUSATE SODIUM 100 MG CAP PO SCH (09:00)
[2017-02-04] MEDS: LOSARTAN 50 MG TAB PO SCH (09:15)
--- NOTE | 2017-02-04 10:32 | PN ---
Date/Time of Note Date/Time of Note DATE: 02/04/17 TIME: 10:30 Assessment/Plan Lines/Catheters IV Catheter Type (from Nrsg): Peripheral IV Aviles in Place (from Nrsg): No Assessment/Plan Assessment/Plan The patient is status post cervical fusion. This is complicated by difficulty swallowing. He has prevertebral swelling. He has no respiratory insufficiency. The patient states his swallowing has improved but we will wait for ENT consult prior to discharge. Subjective 24 Hr Interval Summary Arm pain is better. He states that his swallowing has improved. He has no respiratory difficulty. Exam/Review of Systems Vital Signs Vitals Vital Signs Date Time Temp Pulse Resp B/P Pulse Ox O2 Delivery O2 Flow Rate FiO2 02/04/17 07:50 98.7 85 20 156/91 94 02/03/17 22:30 Room Air 02/02/17 20:00 2.0 Intake and Output 02/03/17 02/03/17 02/04/17 15:00 23:00 07:00 Intake Total 660 ml 400 ml 450 ml Output Total 1200 ml Balance 660 ml -800 ml 450 ml Exam Free Text/Dictation Hoarse voice. Neurologically intact in upper ext Results Result Diagram: 02/01/17 0422 02/03/17 1500 CHELO BEJARANO MD Feb 04, 2017 10:31
[2017-02-04] MEDS: FLUCONAZOLE 100 MG/NS (PMX) 50 ML IVPB SCH (17:00)
--- NOTE | 2017-02-04 18:15 | CONS ---
DATE OF ADMISSION: 01/31/2017 DATE OF CONSULTATION: 02/04/2017 TYPE OF CONSULTATION: ENT HISTORY OF PRESENT ILLNESS: Arthur Patterson is a 66-year-old gentleman who is 4 days status post ante rior cervical fusion. He has been complaining of dysphagia since his surgery; however, it does appe ar to be slowly improving. He is able to swallow ice chips and fluids, but ENT was consulted today to evaluate him. He denies any otalgia. He has had some hoarseness since the procedure, yet it warner s appear to be improving. He denies any hemoptysis. PAST MEDICAL HISTORY: Hypertension, BPH, gastroesophageal reflux disease, obstructive sleep apnea. PAST SURGICAL HISTORY: Lumbar fusion, cervical fusion, total knee replacement. DRUG ALLERGIES: NONE. MEDICATIONS: 1. Cialis. 2. Flomax. 3. Glimepiride. 4. Januvia. 5. Losartan. 6. Metformin. 7. Ranitidine. SOCIAL HISTORY: Negative for tobacco, alcohol or drug abuse. FAMILY HISTORY: Positive for congestive heart failure in his father. Other than that, there is no evidence of lung, liver, kidney or thyroid disease. 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 He had been g etting speech therapy and that has been helping quite a bit. A 12-point review of systems other jen n anything noted above is noncontributory. PHYSICAL EXAMINATION: Today, his ears are clear. Eardrums are intact. There is no fluid, erythema , infection, or perforation. His septum is mildly deviated to the left. There are no purulent secr etions, polyps or active bacterial infection. The oral cavity and oropharynx show tongue, floor of mouth are normal. The patient is wearing a cervical collar, but the left anterior cervical incision can be seen and is healing well. At this point, endoscopy was then performed through the right wei al cavity. The nasopharynx is clear. The base of tongue is symmetric. The vallecula is open. He does have left-sided posterior pharyngeal edema and bruising, but I can see down to the cords, they are moving well. He does have some thick secretions, but his airway is adequate. IMPRESSION: 1. Dysphagia. 2. Deviated septum. 3. Hoarseness. PLAN: At this point, I think it is reasonable to discharge him as his airway is adequate and he is able to tolerate his secretions as well as fluids. I suspect over time as the mild hematoma resolve s, he should just continue to improve. However, he has been instructed to return to the ER for any issues. Dictated By: MAXIMUS MEANS/AKOSUA Conf#: [id number] DID#: [id number]
--- NOTE | 2017-02-07 07:58 | DS ---
DATE OF ADMISSION: 01/31/2017 DATE OF DISCHARGE: 02/04/2017 ADMITTING DIAGNOSIS: Cervical stenosis. DISCHARGE DIAGNOSES: 1. Cervical stenosis. 2. Pharyngeal hematoma. PROCEDURE: Patient taken to the operating room on 01/31/2017 and underwent ACDF. HOSPITAL COURSE: Patient admitted [facility] after undergoing the above procedure. Postope ratively, he was initially having some difficulty swallowing, which improved. He had a swallow stud y showing no evidence of aspiration. He underwent an ENT evaluation by Dr. Walker and was diagnosed with left-sided posterior pharyngeal edema and bruising. The cords were moving well. It was felt that he was deemed stable for discharge with followup arranged with the undersigned. Dictated By: CHELO BEJARANO MD BB/NTS Conf#: [id number] DID#: [id number] CC: CHELO BEJARANO MD;*EndCC*
== END 2017-02-04 17:50 | disposition home or self-care (01) | DRG 473 ==
LOC: REC 08:52 → MS1 16:54
PROVIDERS: ADMIT Specialist; ATTEND Specialist
PROC: 0RG2070 Fusion of 2 or more Cervical Vertebral Joints with Autologous Tissue Substitute, Anterior Approach, Anterior Column, Open Approach (ICD-10-PCS; 2017-01-31)
PROC: 4A11X4G Monitoring of Peripheral Nervous Electrical Activity, Intraoperative, External Approach (ICD-10-PCS; 2017-01-31)
PROC: 0RG20A0 Fusion of 2 or more Cervical Vertebral Joints with Interbody Fusion Device, Anterior Approach, Anterior Column, Open Approach (ICD-10-PCS; principal; 2017-01-31 11:00)
DX: M50.122 Cervical disc disorder at C5-C6 level with radiculopathy (principal); R13.12 Dysphagia, oropharyngeal phase; I10 Essential (primary) hypertension; M50.123 Cervical disc disorder at C6-C7 level with radiculopathy; K21.9 Gastro-esophageal reflux disease without esophagitis; G47.33 Obstructive sleep apnea (adult) (pediatric); N40.0 Benign prostatic hyperplasia without lower urinary tract symptoms; E11.9 Type 2 diabetes mellitus without complications; D17.0 Benign lipomatous neoplasm of skin and subcutaneous tissue of head, face and neck; J34.2 Deviated nasal septum; R49.0 Dysphonia
CPT/HCPCS: 71010; 72050; 74230; 76536; 80048; 82962; 83735; 85025; 86850; 86900; 86901; 92526; 92610; 92611; 97116; 97163; 97165; 97530; C1713; J0330; J0360; J0690; J1100; J1170; J1200; J1450; J1815; J2250; J2405; J2710; J2765; J3480